=== PATIENT | female | born 1965 | race Caucasian/White ===

== ENCOUNTER 2017-01-08 13:46 | Observation (INO) | payer OTHER ==
[~2017-01-08] VITALS: Ht 152.4 cm; Wt 80.0 kg
[2017-01-08] MEDS ORDERED: HUMALOG100 MG/ML (13:55)
[2017-01-08] MEDS ORDERED: VALSARTAN40 MG (13:56)
[2017-01-08 14:31] LABS: HEMATOCRIT 42.8 % (37.0-47.0); HEMOGLOBIN 15.3 g/dl (12.0-16.0); IMMATURE GRANULOCYTES 0.5 % (0.0-1.0); MEAN CELL VOLUME 85.6 fL CALC (80.0-100.0); MEAN CORPUSCULAR HGB 30.6 pG CALC (26.0-32.0); MEAN CORPUSCULAR HGB CONC 35.7 g/L CALC (32.0-36.0); NEUT# 11.31 thou/uL (2.00-7.15); RED CELL DISTRI WIDTH 12.6 % (11.5-15.5)
[2017-01-08 14:32] LABS: URINE BILIRUBIN - DIPSTICK NEGATIVE (NEGATIVE); URINE BLOOD DIPSTICK MODERATE (NEGATIVE); URINE CLARITY CLEAR; URINE COLOR YELLOW; URINE GLUCOSE - DIPSTICK 100 mg/dL (NEGATIVE); URINE KETONE NEGATIVE (NEGATIVE); URINE LEUK ESTERASE NEGATIVE (NEGATIVE); URINE NITRITE - DIPSTICK NEGATIVE (Negative); URINE PH 5.5 (4.5-8.0); URINE PROTEIN - DIPSTICK 30 mg/dL (NEG-TRACE); URINE SPECIFIC GRAVITY >=1.030; URINE UROBILINOGEN - DIPSTICK 0.2 E.U./dL (0.2)
[2017-01-08 14:40] LABS: URINE SQUAMOUS EPITHELIAL CELL FEW EPI/hpf (0-FEW)
[2017-01-08 14:50] LABS: ALBUMIN 4.1 g/dL (3.2-5.0); ALKALINE PHOSPHATASE 85 u/l (38-126); ANION GAP 15 (6-22 (CALC)); BILIRUBIN, TOTAL 1.1 mg/dL (0.0-1.4); BUN 21 mg/dL (7-17); BUN/CREATININE RATIO 37 (12-20 (CALC)); CALCIUM 9.3 mg/dL (8.4-10.2); CARBON DIOXIDE 26 mmol/l (22-30); CHLORIDE 99 mmol/l (95-108); CREATININE 0.6 mg/dL (0.5-1.0); GFR > 60 ML/MIN (>=60 (CALC)); GFR FOR AFR.AMER. > 60 ML/MIN (>=60 (CALC)); GLUCOSE 274 mg/dL (65-105); POTASSIUM 4.3 mmol/l (3.5-5.1); SGOT/AST 20 u/l (14-36); SGPT/ALT 27 u/l (9-52); SODIUM 136 mmol/l (137-146); TOTAL PROTEIN 7.1 g/dL (6.3-8.2)
[2017-01-08 17:30] VITALS: BP 98/72
[2017-01-08 19:15] VITALS: BP 90/64
[2017-01-08 22:46] LABS: INFLUENZA A NONE DETECTED (NONE DETECT); INFLUENZA B NONE DETECTED (NONE DETECT)
[2017-01-08 23:40] VITALS: BP 96/58
[2017-01-09 04:27] VITALS: BP 101/66
[2017-01-09 05:30] LABS: HEMATOCRIT 39.1 % (37.0-47.0); HEMOGLOBIN 13.6 g/dl (12.0-16.0); IMMATURE GRANULOCYTES 0.5 % (0.0-1.0); MEAN CELL VOLUME 88.1 fL CALC (80.0-100.0); MEAN CORPUSCULAR HGB 30.6 pG CALC (26.0-32.0); MEAN CORPUSCULAR HGB CONC 34.8 g/L CALC (32.0-36.0); NEUT# 5.24 thou/uL (2.00-7.15); RED BLOOD COUNT 4.44 mill/uL (4.20-5.60); RED CELL DISTRI WIDTH 12.4 % (11.5-15.5)
[2017-01-09 05:36] LABS: ANION GAP 12 (6-22 (CALC)); BUN 21 mg/dL (7-17); BUN/CREATININE RATIO 37 (12-20 (CALC)); CALCIUM 8.9 mg/dL (8.4-10.2); CARBON DIOXIDE 28 mmol/l (22-30); CHLORIDE 103 mmol/l (95-108); CREATININE 0.6 mg/dL (0.5-1.0); GFR > 60 ML/MIN (>=60 (CALC)); GFR FOR AFR.AMER. > 60 ML/MIN (>=60 (CALC)); GLUCOSE 244 mg/dL (65-105); POTASSIUM 4.8 mmol/l (3.5-5.1); SODIUM 139 mmol/l (137-146)
[2017-01-09 07:41] VITALS: BP 106/30
[2017-01-09] MEDS ORDERED: TRAMADOL HCL50 MG PO (11:27)
[2017-01-09] MEDS ORDERED: AUGMENTIN875TAB PO (11:27)
== END 2017-01-09 13:17 | disposition home or self-care (01) | DRG 638 ==
LOC: ENPENDDIS → ED 13:46 → ED-I 15:55 → ED 16:14 → MS2 16:15
PROVIDERS: Emergency Medicine; ADMIT Internal Medicine; ATTEND Internal Medicine
PROC: 0H9BXZZ Drainage of Right Upper Arm Skin, External Approach (ICD-10-PCS; principal; 2017-01-08)
DX: E11.628 Type 2 diabetes mellitus with other skin complications (principal); L03.113 Cellulitis of right upper limb; E11.65 Type 2 diabetes mellitus with hyperglycemia; F17.210 Nicotine dependence, cigarettes, uncomplicated; S50.361A Insect bite (nonvenomous) of right elbow, initial encounter; W57.XXXA Bitten or stung by nonvenomous insect and other nonvenomous arthropods, initial encounter; Z96.41 Presence of insulin pump (external) (internal); Z79.4 Long term (current) use of insulin

== ENCOUNTER 2017-06-21 19:39 | Emergency (ER) | payer OTHER ==
[~2017-06-21] VITALS: Ht 152.4 cm; Wt 81.6 kg
[~2017-06-21 19:39] MED LIST: AUGMENTIN875TAB PO; HUMALOG100 MG/ML; TRAMADOL HCL50 MG PO; VALSARTAN40 MG
[2017-06-21 21:47] VITALS: BP 131/82
== END 2017-06-21 21:47 | disposition home or self-care (01) | DRG 605 ==
LOC: ED 19:39
PROC: 0HQ0XZZ Repair Scalp Skin, External Approach (ICD-10-PCS; principal; 2017-06-21)
DX: S01.01XA Laceration without foreign body of scalp, initial encounter (principal); E10.8 Type 1 diabetes mellitus with unspecified complications; F17.200 Nicotine dependence, unspecified, uncomplicated; W01.0XXA Fall on same level from slipping, tripping and stumbling without subsequent striking against object, initial encounter; Y93.E5 Activity, floor mopping and cleaning

== ENCOUNTER 2017-09-02 20:41 | Emergency (ER) | payer OTHER ==
[~2017-09-02] VITALS: Ht 152.4 cm; Wt 88.9 kg
[2017-09-02 21:50] LABS: URINE BILIRUBIN - DIPSTICK NEGATIVE (NEGATIVE); URINE BLOOD DIPSTICK SMALL (NEGATIVE); URINE COLOR YELLOW; URINE GLUCOSE - DIPSTICK >=1000 mg/dL (NEGATIVE); URINE KETONE NEGATIVE (NEGATIVE); URINE LEUK ESTERASE NEGATIVE (NEGATIVE); URINE NITRITE - DIPSTICK NEGATIVE (Negative); URINE PROTEIN - DIPSTICK NEGATIVE (NEG-TRACE); URINE SPECIFIC GRAVITY 1.015; URINE UROBILINOGEN - DIPSTICK 0.2 E.U./dL (0.2)
[2017-09-02 21:51] LABS: HEMATOCRIT 40.7 % (37.0-47.0); HEMOGLOBIN 14.6 g/dl (12.0-16.0); IMMATURE GRANULOCYTES 0.9 % (0.0-1.0); MEAN CELL VOLUME 86.8 fL CALC (80.0-100.0); MEAN CORPUSCULAR HGB 31.1 pG CALC (26.0-32.0); MEAN CORPUSCULAR HGB CONC 35.9 g/L CALC (32.0-36.0); NEUT# 8.75 thou/uL (2.00-7.15); RED BLOOD COUNT 4.69 mill/uL (4.20-5.60)
[2017-09-02 21:59] LABS: URINE CLARITY CLEAR
[2017-09-02 22:01] LABS: URINE SQUAMOUS EPITHELIAL CELL FEW EPI/hpf (0-FEW); URINE WBC 0-2 WBC/hpf (0-5)
[2017-09-02 22:03] LABS: ALBUMIN 3.9 g/dL (3.2-5.0); ALKALINE PHOSPHATASE 137 u/l (38-126); AMYLASE 31 u/l (30-110); ANION GAP 13 (6-22 (CALC)); BILIRUBIN, TOTAL 0.4 mg/dL (0.0-1.4); BUN 13 mg/dL (7-17); BUN/CREATININE RATIO 24 (12-20 (CALC)); CARBON DIOXIDE 27 mmol/l (22-30); CHLORIDE 103 mmol/l (95-108); CREATININE 0.5 mg/dL (0.5-1.0); GFR > 60 ML/MIN (>=60 (CALC)); GFR FOR AFR.AMER. > 60 ML/MIN (>=60 (CALC)); LIPASE 30 u/l (23-300); POTASSIUM 4.4 mmol/l (3.5-5.1); SGOT/AST 19 u/l (14-36); SGPT/ALT 29 u/l (9-52); SODIUM 139 mmol/l (137-146); TOTAL PROTEIN 6.6 g/dL (6.3-8.2)
[2017-09-02 22:17] LABS: MYOGLOBIN 23 ng/mL (0 - 62)
[2017-09-02] MEDS ORDERED: TORADOL PO (23:43)
[2017-09-03 00:18] VITALS: BP 121/71
== END 2017-09-03 00:23 | disposition home or self-care (01) | DRG 392 ==
LOC: ED 20:41
PROVIDERS: Emergency Medicine
DX: R10.31 Right lower quadrant pain (principal); E10.9 Type 1 diabetes mellitus without complications; R10.33 Periumbilical pain; Z79.4 Long term (current) use of insulin; Z96.41 Presence of insulin pump (external) (internal); F17.210 Nicotine dependence, cigarettes, uncomplicated
CPT/HCPCS: Q9967

== ENCOUNTER 2018-06-25 05:34 | Emergency (ER) | payer OTHER ==
[~2018-06-25] VITALS: Ht 152.4 cm; Wt 90.0 kg
[~2018-06-25 05:34] MED LIST changes: +TORADOL PO
[2018-06-25 06:21] LABS: HEMATOCRIT 40.7 % (37.0-47.0); HEMOGLOBIN 14.2 g/dl (12.0-16.0); IMMATURE GRANULOCYTES 0.8 % (0.0-5.0); MEAN CELL VOLUME 85.7 fL CALC (80.0-100.0); MEAN CORPUSCULAR HGB 29.9 pG CALC (26.0-32.0); MEAN CORPUSCULAR HGB CONC 34.9 g/L CALC (32.0-36.0); NEUT# 7.57 thou/uL (2.00-7.15); RED BLOOD COUNT 4.75 mill/uL (4.20-5.60)
[2018-06-25 06:33] LABS: ALBUMIN 3.8 g/dL (3.2-5.0); ALKALINE PHOSPHATASE 114 u/l (38-126); ANION GAP 9 (6-22 (CALC)); BILIRUBIN, TOTAL 0.3 mg/dL (0.0-1.4); BUN 16 mg/dL (7-17); BUN/CREATININE RATIO 30 (12-20 (CALC)); CARBON DIOXIDE 30 mmol/l (22-30); CHLORIDE 107 mmol/l (95-108); CREATININE 0.5 mg/dL (0.5-1.0); GFR > 60 ML/MIN (>=60 (CALC)); GFR FOR AFR.AMER. > 60 ML/MIN (>=60 (CALC)); POTASSIUM 3.9 mmol/l (3.5-5.1); SGOT/AST 19 u/l (14-36); SODIUM 142 mmol/l (137-146); TOTAL PROTEIN 7.2 g/dL (6.3-8.2)
[2018-06-25 06:45] LABS: MYOGLOBIN 26 ng/mL (0 - 62)
[2018-06-25] MEDS ORDERED: CYMBALTA20 MG PO (06:52)
[2018-06-25 08:35] LABS: URINE BILIRUBIN - DIPSTICK NEGATIVE (NEGATIVE); URINE BLOOD DIPSTICK TRACE-INTACT (NEGATIVE); URINE COLOR YELLOW; URINE GLUCOSE - DIPSTICK NEGATIVE (NEGATIVE); URINE KETONE NEGATIVE (NEGATIVE); URINE LEUK ESTERASE NEGATIVE (NEGATIVE); URINE NITRITE - DIPSTICK NEGATIVE (Negative); URINE PROTEIN - DIPSTICK 100 mg/dL (NEG-TRACE); URINE SPECIFIC GRAVITY 1.025; URINE UROBILINOGEN - DIPSTICK 0.2 E.U./dL (0.2)
[2018-06-25 08:36] LABS: URINE CLARITY CLEAR
[2018-06-25 08:43] LABS: URINE BACTERIA FEW hpf; URINE SQUAMOUS EPITHELIAL CELL FEW EPI/hpf (0-FEW)
[2018-06-25] MEDS ORDERED: CEPHALEXIN500 M1 PO (08:47)
[2018-06-25] MEDS ORDERED: ANTIVERT PO (08:47)
[2018-06-25] MEDS ORDERED: ZOFRAN ODT4 MG PO (08:47)
[2018-06-25] MEDS ORDERED: MEDDOSEPAK PO (08:47)
[2018-06-25 08:56] VITALS: BP 120/74
== END 2018-06-25 08:56 | disposition home or self-care (01) | DRG 149 ==
LOC: ED 05:34
PROVIDERS: Family Medicine
DX: R42 Dizziness and giddiness (principal); J32.9 Chronic sinusitis, unspecified; I10 Essential (primary) hypertension; E11.40 Type 2 diabetes mellitus with diabetic neuropathy, unspecified; F17.200 Nicotine dependence, unspecified, uncomplicated; Z79.4 Long term (current) use of insulin; Z96.41 Presence of insulin pump (external) (internal)

== ENCOUNTER 2020-12-19 20:58 | Emergency (ER) | payer OTHER ==
[~2020-12-19] VITALS: Ht 152.4 cm; Wt 113.0 kg
[~2020-12-19 20:58] MED LIST changes: +ANTIVERT PO; +CEPHALEXIN500 M1 PO; +CYMBALTA20 MG PO; +MEDDOSEPAK PO; -VALSARTAN40 MG; +VALSARTAN80 MG PO; +ZOFRAN ODT4 MG PO
[2020-12-19 21:52] LABS: HEMATOCRIT 39.9 % (37.0-47.0); HEMOGLOBIN 13.3 g/dl (12.0-16.0); IMMATURE GRANULOCYTES 1.4 % (0.0-5.0); MEAN CELL VOLUME 85.4 fL CALC (80.0-100.0); MEAN CORPUSCULAR HGB 28.5 pG CALC (26.0-32.0); MEAN CORPUSCULAR HGB CONC 33.3 g/dL CAL (32.0-36.0); NEUT# 9.16 thou/uL (2.00-7.15); RED BLOOD COUNT 4.67 mill/uL (4.20-5.60); RED CELL DISTRI WIDTH 13.4 % (11.5-15.5)
[2020-12-19 22:22] LABS: ALBUMIN 4.5 g/dL (3.2-5.0); ALKALINE PHOSPHATASE 131 u/l (38-126); AMYLASE 36 u/l (30-110); ANION GAP 13 (6-22 (CALC)); BUN 16 mg/dL (7-17); BUN/CREATININE RATIO 24 (12-20 (CALC)); CARBON DIOXIDE 30 mmol/l (22-30); CHLORIDE 99 mmol/l (95-108); CREATININE 0.7 mg/dL (0.5-1.0); GFR > 60 ML/MIN (>=60 (CALC)); GFR FOR AFR.AMER. > 60 ML/MIN (>=60 (CALC)); LIPASE 33 u/l (23-300); POTASSIUM 4.4 mmol/l (3.5-5.1); SGOT/AST 27 u/l (14-36); SODIUM 139 mmol/l (137-146); TOTAL PROTEIN 7.8 g/dL (6.3-8.2)
[2020-12-19 22:28] LABS: BILIRUBIN, TOTAL 0.7 mg/dL (0.0-1.4)
[2020-12-19] MEDS ORDERED: DOXYCYCL HYC100 MG PO (23:44)
[2020-12-19 23:52] VITALS: BP 118/66
[2020-12-20] MEDS ORDERED: SPIRONOLACTONE25 MG PO (00:38)
[2020-12-20] MEDS ORDERED: PROTONIX40 M2 PO (00:38)
[2020-12-20] MEDS ORDERED: LIPITOR40 M1 PO (00:39)
[2020-12-20] MEDS ORDERED: BUPROPN HCL300 MG PO (00:40)
[2020-12-20] MEDS ORDERED: HYDROXYZINE HCL10 MG PO (00:41)
[2020-12-20] MEDS ORDERED: LAMICTAL100 M1 PO (00:42)
== END 2020-12-20 00:52 | disposition home or self-care (01) | DRG 192 ==
LOC: ED 20:58
PROVIDERS: Family Medicine
DX: J44.1 Chronic obstructive pulmonary disease with (acute) exacerbation (principal); R10.11 Right upper quadrant pain; I10 Essential (primary) hypertension; E11.40 Type 2 diabetes mellitus with diabetic neuropathy, unspecified; Z79.4 Long term (current) use of insulin; Z96.41 Presence of insulin pump (external) (internal); Z87.891 Personal history of nicotine dependence
CPT/HCPCS: Q9967; S0164